=== PATIENT | male | born 1975 | race Hispanic/Latino ===

== ENCOUNTER → 2017-03-14 | Day surgery (SDC) | payer OTHER, SELFPAY ==
[~2017-03-14] MED LIST: BUPIVACAINE 0.25%/EPI 30ML SDV INJ ONE; CEFAZOLIN SOD 2 GM/D5W 50ML 50 ML IV ONE; FENTANYL CITRATE/PF 100MCG/2 ML INJ ONE; MIDAZOLAM HCL 2 MG/2 ML VIAL ONE
--- NOTE | 2017-03-15 16:30 | Operative Report ---
DATE OF PROCEDURE: March 14, 2017 PREOPERATIVE DIAGNOSES 1. Right knee medial meniscus tear. 2. Right knee degenerative joint disease of the knee. POSTOPERATIVE DIAGNOSES 1. Right knee medial meniscus tear. 2. Right knee degenerative joint disease of the knee. 3. Right knee symptomatic medial shelf plica. OPERATIONS/PROCEDURES PERFORMED 1. Right knee examination under anesthesia. 2. Right knee arthroscopy. 3. Right knee partial medial meniscectomy. 4. Right knee chondroplasty of the patella, trochlea, medial femoral condyle, and medial tibial plateau. 5. Excision of medial shelf plica. MACHINE B[employer]CH [employer]KER: None. ANESTHESIA: General endotracheal intubation anesthesia. IV FLUIDS: Per the anesthesia record. DESCRIPTION OF PROCEDURE: Mr. Chen was taken to the operating room and placed in the supine position on the operating table. Following the induction of general anesthesia, as well as endotracheal intubation, the patient's right lower extremity was examined under anesthesia. He was found to have a mild effusion within the knee joint but an, otherwise, ligamentously stable knee. The patient's lower extremity was prepped and draped in the standard surgical fashion. A 2-portal technique was used to provide this patient arthroscopic evaluation of the knee joint. Examination of the suprapatellar pouch, medial and lateral gutters found no evidence of loose bodies. There was, however, evidence of chondromalacia of the patellar and trochlear surfaces. The scope was advanced to the medial compartment. Examination of the medial compartment demonstrated a torn and macerated medial meniscus. There was also chondromalacia of the articulating surfaces. A combination of biting forceps and a motorized shaver was used to resect the torn portion of the meniscus. Chondroplasties of the medial femoral condyle and medial tibial plateau were performed at this time. The scope was then advanced to the intracondylar notch. The anterior cruciate ligament was identified and found to be intact. The scope was advanced to the lateral compartment. There was no significant pathology. The scope was then placed in the suprapatellar pouch, and chondroplasties of the patella and trochlea were performed. There was also an inflamed medial shelf plica that was interdigitating between the medial femoral condyle and the patella. This was resected at the time of surgery. The knee was then deflated of its sterile normal saline. Each of the portal sites was closed using 4-0 nylon suture. The portal sites, as well as the knee itself, were then injected with 0.5% Marcaine with epinephrine. Sterile dressings were applied. The patient was then awakened and taken to the postanesthesia care unit in stable condition. Job#: [id number]
== END ==
LOC: OR 10:52
PROVIDERS: ATTEND Specialist
DX: S83.231A Complex tear of medial meniscus, current injury, right knee, initial encounter (principal); M17.11 Unilateral primary osteoarthritis, right knee; M67.51 Plica syndrome, right knee; M22.41 Chondromalacia patellae, right knee; X58.XXXA Exposure to other specified factors, initial encounter; Z01.810 Encounter for preprocedural cardiovascular examination; Z68.32 Body mass index [BMI] 32.0-32.9, adult
CPT/HCPCS: 29881; 93005; J2250